=== PATIENT | female | born 1970 | race American Indian/Alaskan Native ===

== ENCOUNTER 2018-04-10 09:33 | Outpatient (CLI) | payer OTHER ==
--- NOTE | 2018-04-10 15:43 | XRay Report ---
XRAY LEFT HAND THREE VIEWS: 04/10/18 09:33:00 CLINICAL: Pain. FINDINGS: Mild osteoarthritis at the basal joint of the thumb. The rest of the joints are normal. No erosions. The carpal bones are intact. No fracture or dislocation. 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
== END 2018-04-10 09:34 | disposition home or self-care (01) ==
LOC: XRAY 09:33
PROVIDERS: ATTEND Internal Medicine
DX: M19.042 Primary osteoarthritis, left hand (principal)